=== PATIENT | female | born 1995 | race Caucasian/White ===

== ENCOUNTER 2017-07-12 17:55 | Outpatient (CLI) | payer OTHER ==
[2017-07-12] MEDS: TERBUTALINE 1 MG/ML INJ SC (19:51)
[2017-07-12] MEDS ORDERED: TERBUTALINE 1 MG/ML INJ SC (20:00)
[2017-07-12 20:12] LABS: ADD UMIC YES; UR ASCORBIC ACID NEGATIVE (NEGATIVE); UR BACTERIA FEW /HPF (NONE SEEN); UR BILIRUBIN (Dip) NEGATIVE (NEGATIVE); UR BLOOD (Dip) 1+ mg/dL (NEGATIVE); UR CLARITY SLIGHTLY CLOUDY (CLEAR); UR COLOR YELLOW (YELLOW); UR GLUCOSE (Dip) NEGATIVE (NEGATIVE); UR KETONES (Dip) NEGATIVE (NEGATIVE); UR LEUKOCYTE ESTERASE (Dip) 2+ Leu/ul (NEGATIVE); UR MUCUS FEW /HPF (NONE SEEN); UR NITRITE (Dip) NEGATIVE (NEGATIVE); UR RBC 2 /HPF (0-5); UR SPECIFIC GRAVITY (Dip) 1.021 (1.003-1.030); UR SQUAMOUS EPITHELIAL CELL FEW /HPF (FEW); UR TOTAL PROTEIN (Dip) NEGATIVE (NEGATIVE); UR UROBILINOGEN (Dip) NEGATIVE (NEGATIVE); UR WBC 22 /HPF (0-5)
== END 2017-07-12 21:55 | disposition home or self-care (01) ==
LOC: OBT 17:55 → L-D 17:56 → OBT 21:55
DX: O26.852 Spotting complicating pregnancy, second trimester (principal); Z3A.22 22 weeks gestation of pregnancy
CPT/HCPCS: 76815; 76817; 81001; 96372

== ENCOUNTER 2017-10-30 21:27 | Inpatient (IN) | payer OTHER ==
[2017-10-30] MEDS: LACTATED RINGER'S 1,000 ML IV* (22:22)
[2017-10-30] MEDS ORDERED: OXYTOCIN 30 UNITS/LR 500 ML IV ×2 (22:30)
[2017-10-30] MEDS ORDERED: LIDOCAINE 1% (MPF) 30 ML INJ INJ (22:30)
[2017-10-30] MEDS ORDERED: METHYLERGONOVINE 0.2 MG INJ IM (22:30)
[2017-10-30] MEDS ORDERED: MISOPROSTOL 200 MCG TAB PR (22:30)
[2017-10-30] MEDS ORDERED: CARBOPROST 250 MCG INJ IM (22:30)
[2017-10-30] MEDS ORDERED: BUTORPHANOL 2 MG INJ IV (22:30)
[2017-10-30 23:13] LABS: ADD MAN DIFF? NO
[2017-10-30 23:15] LABS: EOSINOPHILS % 0.2 % (0.0-7.0); HEMATOCRIT 35.1 % (37.0-47.0); HEMOGLOBIN 11.9 g/dl (12.0-16.0); LYMPHOCYTES % 22.1 % (15.0-51.0); MEAN CORPUSCULAR HEMOGLOBIN 32.1 pg (29.0-33.0); MEAN CORPUSCULAR HGB CONC 33.9 g/dl (32.0-37.0); MEAN CORPUSCULAR VOLUME 94.6 fl (82.0-101.0); MEAN PLATELET VOLUME 11.2 fl (7.4-10.4); MONOCYTE # 0.5 10^3/ul (0.3-0.9); MONOCYTES % 5.3 % (0.0-11.0); NEUTROPHIL # 6.6 10^3/ul (1.6-7.5); PLATELET COUNT 226 10^3/UL (140-415); RED BLOOD COUNT 3.71 10^6/ul (4.20-5.40); RED CELL DISTRIBUTION WIDTH 12.9 % (11.5-14.5)
[2017-10-30 23:15] LABS: WHITE BLOOD COUNT 9.2 10^3/ul (4.8-10.8)
[2017-10-30 23:38] LABS: INR 1.09; PROTIME 14.2 Sec (11.9-14.9); PT RATIO 1.1
[2017-10-30 23:39] LABS: PARTIAL THROMBOPLASTIN TIME 34.7 Sec (25.0-35.0)
[2017-10-31] MEDS: LACTATED RINGER'S 1,000 ML IV* ×4 (01:22→19:42)
[2017-10-31 03:57] LABS: HEPATITIS B SURFACE ANTIGEN NEGATIVE (NEGATIVE)
[2017-10-31] MEDS: LACTATED RINGER'S 1,000 ML IV (06:39)
[2017-10-31] MEDS ORDERED: FENTAnyl 2MCG/ML-ROPIV 0.2% 100 ML (07:58)
[2017-10-31] MEDS ORDERED: NALOXONE (0.4 MG/ML) INJ IV (08:30)
[2017-10-31] MEDS ORDERED: FENTAnyl 2MCG/ML-ROPIV 0.2% 100 ML BAG EPI (08:30)
[2017-10-31] MEDS ORDERED: OXYTOCIN 30 UNITS/LR 500 ML IV ×2 (11:30→20:00)
[2017-10-31] MEDS: OXYTOCIN 30 UNITS/LR 500 ML IV ×3 (11:57→19:56)
[2017-10-31 15:11] LABS: RAPID PLASMA REAGIN NONREACTIVE (NR)
[2017-10-31] MEDS ORDERED: MISOPROSTOL 200 MCG TAB PR (20:00)
[2017-10-31] MEDS ORDERED: METHYLERGONOVINE 0.2 MG INJ IM (20:00)
[2017-10-31] MEDS ORDERED: DIPHENHYDRAMINE 25 MG CAP PO (20:00)
[2017-10-31] MEDS ORDERED: MAGNESIUM HYDROXIDE 30ML CUP PO (20:00)
[2017-10-31] MEDS ORDERED: ZOLPIDEM 5 MG TAB PO (20:00)
[2017-10-31] MEDS ORDERED: CARBOPROST 250 MCG INJ IM (20:00)
[2017-10-31] MEDS ORDERED: SENNA/DOCUSATE NA (8.6MG/50MG) TAB PO (20:00)
[2017-10-31] MEDS: BENZOCAINE 20% 56 ML SPRAY TOP (20:46)
[2017-10-31] MEDS: WITCH HAZEL/GLYCERIN PAD PR (20:47)
[2017-10-31] MEDS: LANOLIN 7 GM TUBE TOP (20:47)
[2017-10-31] MEDS: DIBUCAINE 1% 30 GM OINT TOP (22:21)
[2017-11-01] MEDS ORDERED: IBUPROFEN 800 MG TAB PO
[2017-11-01] MEDS: ACETAMINOPHEN 325 MG TAB PO ×2 (02:11→12:44)
[2017-11-01] MEDS: LACTATED RINGER'S 1,000 ML IV* (03:42)
[2017-11-01 09:02] LABS: ADD MAN DIFF? NO
[2017-11-01 09:12] LABS: BASOPHILS % 0.1 % (0.0-2.0); EOSINOPHILS % 0.1 % (0.0-7.0); HEMATOCRIT 31.3 % (37.0-47.0); HEMOGLOBIN 10.5 g/dl (12.0-16.0); LYMPHOCYTES # 2.9 10^3/ul (0.8-2.9); LYMPHOCYTES % 19.2 % (15.0-51.0); MEAN CORPUSCULAR HEMOGLOBIN 32.1 pg (29.0-33.0); MEAN CORPUSCULAR HGB CONC 33.5 g/dl (32.0-37.0); MEAN CORPUSCULAR VOLUME 95.7 fl (82.0-101.0); MEAN PLATELET VOLUME 11.2 fl (7.4-10.4); MONOCYTE # 1.1 10^3/ul (0.3-0.9); MONOCYTES % 7.1 % (0.0-11.0); NEUTROPHIL # 11.2 10^3/ul (1.6-7.5); NEUTROPHILS % 73.1 % (39.0-77.0); PLATELET COUNT 183 10^3/UL (140-415); RED BLOOD COUNT 3.27 10^6/ul (4.20-5.40)
[2017-11-01 09:12] LABS: WHITE BLOOD COUNT 15.3 10^3/ul (4.8-10.8)
[2017-11-01] MEDS: HYDROCODONE/APAP (5/325) TAB PO (14:52)
[2017-11-01] MEDS ORDERED: HYDROCODONE/APAP (5/325) TAB PO (19:30)
[2017-11-02] MEDS: DIPHTH/TET/ACEL PERTUSS (ADULT) 0.5 ML VIAL IM* (09:00)
[2017-11-02] MEDS: VARICELLA VACCINE LIVE/PF 1,350 UNIT/0.5 ML ML SC* (09:10)
[2017-11-02] MEDS: MEASLES,MUMPS,RUBELLA VACCINE INJ SC* (09:10)
== END 2017-11-02 13:00 | disposition home or self-care (01) | DRG 775 ==
LOC: L-D 21:27 → PP1 10-31 16:57
PROVIDERS: Obstetrics & Gynecology
PROC: 10E0XZZ Delivery of Products of Conception, External Approach (ICD-10-PCS; principal; 2017-10-31)
DX: O80 Encounter for full-term uncomplicated delivery (principal); Z3A.38 38 weeks gestation of pregnancy; Z37.0 Single live birth
CPT/HCPCS: 62319; 85025; 85610; 85730; 86592; 86850; 86900; 86901; 87340; 99464

== ENCOUNTER 2018-09-02 19:59 | Emergency (ER) | payer SELFPAY, OTHER | END 2018-09-02 21:29 | disposition home or self-care (01) | LOC: FTE 19:59 | DX: J06.9 Acute upper respiratory infection, unspecified (principal) | CPT/HCPCS: 99283 ==